=== PATIENT | male | born 1940 | race Caucasian/White ===

== ENCOUNTER → 2017-06-13 | Outpatient (CLI) | payer OTHER ==
[~2017-06-13] MED LIST: ANUSOL-HC21 GM RC; CIPRO250 MG PO; COLACE 100 MG100 MG PO; FLAGYL500 MG PO; PAMELOR; PROTONIX40 M2 PO; ZOFRAN4 MG PO
== END ==
LOC: M.CT 10:18
DX: K57.30 Diverticulosis of large intestine without perforation or abscess without bleeding (principal); N40.1 Benign prostatic hyperplasia with lower urinary tract symptoms; K59.00 Constipation, unspecified; R19.5 Other fecal abnormalities

== ENCOUNTER → 2017-07-10 | Outpatient (CLI) | payer OTHER ==
[2017-07-10 11:06] LABS: CREATININE 1.2 mg/dL (0.6-1.3)
== END ==
LOC: M.CT 06-26 09:30 → M.LAB 10:11 → M.CT 11:30
PROVIDERS: Registered Nurse Diabetes Educator
DX: J98.11 Atelectasis (principal); M41.84 Other forms of scoliosis, thoracic region; R10.9 Unspecified abdominal pain

== ENCOUNTER → 2018-08-28 | Outpatient (CLI) | payer OTHER | LOC: M.RAD 15:34 | DX: M16.0 Bilateral primary osteoarthritis of hip (principal); M48.07 Spinal stenosis, lumbosacral region; M41.85 Other forms of scoliosis, thoracolumbar region; M25.751 Osteophyte, right hip; M25.752 Osteophyte, left hip; Q05.7 Lumbar spina bifida without hydrocephalus ==

== ENCOUNTER → 2019-02-21 | Outpatient (CLI) | payer OTHER | LOC: M.RAD 10:15 | DX: M75.91 Shoulder lesion, unspecified, right shoulder (principal); Z88.8 Allergy status to other drugs, medicaments and biological substances ==

== ENCOUNTER → 2019-11-27 | Outpatient (CLI) | payer OTHER | LOC: M.RAD 16:40 | PROVIDERS: ATTEND Registered Nurse Diabetes Educator | DX: R53.83 Other fatigue (principal); R79.81 Abnormal blood-gas level; R53.1 Weakness ==